=== PATIENT | male | born 1960 | race Caucasian/White ===

== ENCOUNTER → 2016-10-09 | Outpatient (CLI) | payer OTHER ==
[~2016-10-09] MED LIST: CELEXA PO; LEXAPRO PO; LISINOPRIL-HCTZ1 T19 PO; QUDEXY XR100 MG PO; TOPAMAX200 MG PO; WELLBUTRIN XL PO; WELLBUTRIN XL150 MG PO; XANAX2 MG PO
--- NOTE | ~2016-10-09 | BD1 ---
[facility] A Service of [facility] RADIOLOGY TEXT RESULTS PATIENT: OC MCBRIDE JR LOCATION: [facility] : 56 UNIT #: [id number] AGE: [address]: CARINA DUMAS MD SEX: M ORDER DR: [id number] [facility] [address] [place], [place] [address] [id number] O MR#: [id number] Acc #: [id number] NAME: OC MCBRIDE : 1960 SEX: M STUDY DATE/TIME: 10/09/2016 11:17 UNIT: [facility] ROOM: STUDY DESCRIPTION: BD Dexa Bone Dens 1+ Site Attending Physician: Carina Dumas M.D. Referring Physician: Carina Dumas M.D. Ordering Physician: Carina Dumas M.D. Primary Care Physician: Carina Dumas M.D. MEDICAL IMAGING REPORT This report is preliminary unless electronic signature is present EXAM Bone density spine hip 10/09/2016 HISTORY Osteoporosis. On Flomax, Xanax, Wellbutrin, smoker. Not current. FINDINGS Bone density scanning performed upper 4 lumbar vertebral segments and proximal left femur in 258 pounds 56-year-old male. Bone mineral density L1-L4 is 1.376 g/sq cm. T score 2.6 standard deviation above mean for a reference population normal young individuals, Z score 3.2 standard deviation above mean for age-match population. Proximal left femur total bone mineral density 1.44 g per square centimeter for a T-score 2.6 standard deviation above mean for a reference population normal young individuals and a Z-score 3.0 standard deviation above mean for age-match population. Left femoral neck bone mineral density 1.097 g per square centimeter for a T-score of 1.2 standard deviation above mean for a reference population normal young individuals and a Z-score 2.1 standard deviation above mean for age-match population. IMPRESSION Normal bone mineral density upper 4 lumbar vertebral segments and proximal left femur. Correlate with patient's of clinical status. Continued surveillance recommended as clinically warranted. Dictated by... Srinivas Chang M.D. THIS IS AN ELECTRONICALLY VERIFIED REPORT Srinivas Chang M.D. at 10/10/2016 6:32 PM GAVIOTAK/alejo [facility]. [facility] A Service of [facility] RADIOLOGY TEXT RESULTS PATIENT: OC MCBRIDE JR LOCATION: [facility] : 56 UNIT #: [id number] AGE: [address]: CARINA DUMAS MD SEX: M ORDER DR: TD: 10/09/2016 15:21 JOB #: [id number] MEDICAL IMAGING REPORT Page 1 of 1 COPY
== END | disposition home or self-care (01) ==
LOC: CWCC 10:55
DX: M81.0 Age-related osteoporosis without current pathological fracture (principal)
CPT/HCPCS: 77080